=== PATIENT | female | born 1995 | race African-American/Black ===

== ENCOUNTER 2020-08-10 10:46 | Emergency (ER) | payer OTHER ==
[~2020-08-10] VITALS: Ht 162.6 cm; Wt 118.2 kg
[2020-08-10 10:55] VITALS: BP 144/84; Ht 162.6 cm; Wt 118.2 kg
[2020-08-10 11:49] LABS: BILIRUBIN NEGATIVE (NEGATIVE); KETONE SMALL mg/dL (NEGATIVE); NITRITE NEGATIVE (NEGATIVE); UROBILINOGEN NORMAL mg/dL (< 2)
[2020-08-10 11:51] LABS: BACTERIA MODERATE HPF (NONE SEEN); SQUAMOUS EPITHELIAL 0-5 HPF (0-4); WHITE CELLS - URINE 2 HPF (0-4)
[2020-08-10 11:52] LABS: AMORPHOUS SEDIMENT >1+ LPF (NONE SEEN)
[2020-08-10 11:54] LABS: BASOPHILS 0.2 % (0-2); EOSINOPHILS 0.4 % (0-7); HEMATOCRIT 39.6 % (36.0-48.0); HEMOGLOBIN 13.2 g/dL (12-16); IMMATURE GRANULOCYTES 0.2 % (0-5); LYMPHOCYTE ABS# 2.46 10x3/uL (1.18-3.74); LYMPHOCYTES 23.6 % (15-50); MCH 28.8 pg (26.0-34.0); MCHC 33.3 g/dL (31.0-37.0); MCV 86.5 fL (80.0-100.0); MEAN PLATELET VOLUME 8.7 fL (7.4-10.4); MONOCYTES 6.6 % (2-11); NEUTROPHIL ABS# 7.21 10x3/uL (1.56-6.13); PLATELET COUNT 282 10x3/uL (130-400); RBC 4.58 10x6/uL (4.00-5.40); RDW 13.2 % (11.5-14.5); WBC 10.4 10x3/uL (4.8-10.8)
[2020-08-10 12:00] LABS: ANION GAP 11.2 mmol/L (8-16); CALCIUM 8.9 mg/dL (8.5-10.1); CARBON DIOXIDE 25.7 mmol/L (21.0-32.0); POTASSIUM - SERUM 3.9 mmol/L (3.5-5.1)
[2020-08-10 12:16] LABS: ALBUMIN 3.3 g/dL (3.4-5.0); BILIRUBIN - TOTAL 0.44 mg/dL (0.2-1.3); PROTEIN - SERUM 6.9 g/dL (6.4-8.2)
== END 2020-08-10 13:20 | disposition home or self-care (01) ==
LOC: D.ER 10:46
PROVIDERS: Family Medicine
DX: O03.9 Complete or unspecified spontaneous abortion without complication (principal); R10.9 Unspecified abdominal pain